=== PATIENT | female | born 1975 | race Caucasian/White ===

== ENCOUNTER 2023-12-16 09:02 | Inpatient (IN) | payer SELFPAY ==
[2023-12-16 09:03] VITALS: BP 136/88; PULSE 110; RESP 16; TEMP 37.1; O2SAT 97; BMI 25.9
--- NOTE | 2023-12-16 09:06 | W.ED.PSYCHS ---
HPI - Psych General: Chief Complaint: Psychiatric Symptoms Stated Complaint: BEHAVIOR Time Seen by Provider: 12/16/23 09:04 Source: patient Mode of arrival: EMS (Accompanied with law enforcement) History of Present Illness: 48-year-old female presents emergency room via EMS accompanied by law enforcement. EMS was called for behavioral issues on arrival deputies had encountered the patient first. She was oppositional and required soft restraints on arrival here she was in soft restraints she had been given 5 mg of Haldol and 2.5 mg of Versed. She was able to be released from the soft restraints. She been somewhat aggressive in the field. Is difficult to get her to answer questions she does admit to having PTSD and being anxious. The most I can get out her is that she thinks everyone is listening to her particularly her telegraph. She will not really directly answer questions about homicidal or suicidal intent. She states she removed here from [facility] about 4 years ago she denies previous mental health admissions she is not seen by psychiatry or counselor. Onset (ago): unknown Relieving factors: none Exacerbating factors: none Associated psychiatric symptoms: none Associated symptoms: Deny auditory hallucinations, visual hallucinations, delusions, depression, homicidal ideation, suicidal ideation or racing thoughts Review of Systems Const: Denies: fever(s) or chills Card: Denies: chest pain Resp: Denies: dyspnea GI: Denies: abdominal pain : Denies: dysuria, urinary frequency or urinary urgency Musc: Denies: neck pain or back pain Skin/Breast: Denies: rash Psych: Reports: anxiety; Denies: depression, visual hallucinations, auditory hallucinations, suicidal ideation or homicidal ideation Physical Exam Const: COMMON NORMALS: no acute distress GENERAL APPEARANCE: cooperative and comfortable ORIENTATION/CONSCIOUSNESS: Yes awake, Yes oriented to person, Yes oriented to place and Yes oriented to time HENMT: COMMON NORMALS: normocephalic, atraumatic and hearing grossly normal bilaterally HEAD & SCALP: normocephalic and atraumatic Resp: COMMON NORMALS: normal respiratory effort, No retractions, No use of accessory muscles and clear to auscultation bilaterally AUSCULTATION: clear to auscultation bilaterally Cardio: COMMON NORMALS: regular rate, regular rhythm and No murmurs present (Cardio) RATE: regular rate RHYTHM: regular rhythm GI: COMMON NORMALS: Soft to palpation and No hepatosplenomegaly present AUSCULTATION: Yes normoactive bowel sounds PALPATION: Yes Soft to palpation, No Tenderness to palpation present (GI), No Guarding due to palpation present (GI) and Yes No hepatosplenomegaly present Extremity: COMMON NORMALS: normal to inspection, capillary refill normal, no clubbing, cyanosis or edema, no calf tenderness and no pedal edema Neuro: SENSORIUM/ORIENTATION: Yes oriented to person, Yes oriented to place and Yes oriented to time Psych: THOUGHT CONTENT: No delusions Skin: COMMON NORMALS: no rashes or lesions noted GENERAL SKIN EXAM: no rashes or lesions noted Course Vital Signs: Vital signs: Vital Signs Temperature 97.9 F 12/16/23 20:57 Pulse Rate 78 12/16/23 20:57 Respiratory Rate 18 12/16/23 20:57 Blood Pressure 120/83 12/16/23 20:57 Pulse Oximetry 98 12/16/23 20:57 Oxygen Delivery Me thod Room Air 12/16/23 20:57 MDM - Psych Medical Decision Making Patient sugar screen positive for methamphetamines. I did talk to the family she behaved normally yesterday they have not seen this behavior from her in the past they were aware that years ago she did use drugs to the best of their knowledge has not been using anything recent. Initially we were looking at transferring the patient 96-hour hold around with find any facilities or able to take her in the course of this and bed did become available at our facility so I discussed with Dr. Shea again and he is excepted the patient admission orders written Differential Diagnosis Likely acute psychosis and drug-induced psychotic disorder Medical Records I reviewed the patient's medical records. Lab Data I reviewed the patient's lab results. 12/16/23 09:47 12/16/23 09:47 Radiology Impressions Chest X-Ray 12/16/23 10:27 IMPRESSION: No acute findings. Laboratory Results WBC 13.67 10^3/uL (3.29-11.43) H 12/16/23 09:47 RBC 4.52 10^6/uL (3.85-5.65) 12/16/23 09:47 Hgb 13.60 g/dL (11.27-16.99) 12/16/23 09:47 Hct 40.4 % (36-47) 12/16/23 09:47 MCV 89.4 fl (85-98) 12/16/23 09:47 MCH 30.1 pg (27-33) 12/16/23 09:47 MCHC 33.7 g/dL (30-55) 12/16/23 09:47 RDW 12.5 % (12.1-15.1) 12/16/23 09:47 Plt Count 317 10^3/cmm (157-399) 12/16/23 09:47 MPV 9.8 fL (7.4-10.4) 12/16/23 09:47 Neut % (Auto) 87.5 % 12/16/23 09:47 Lymph % (Auto) 5.3 % 12/16/23 09:47 [place] % (Auto) 6.5 % 12/16/23 09:47 Eos % (Auto) 0.0 % 12/16/23 09:47 Baso % (Auto) 0.4 % 12/16/23 09:47 Neut # (Auto) 11.97 10^3/uL (1.8-7.7) H 12/16/23 09:47 Lymph # (Auto) 0.7 10^3/uL (0.8-4.8) L 12/16/23 09:47 [place] # (Auto) 0.9 10^3/uL (0.2-0.9) 12/16/23 09:47 Eos # (Auto) 0.0 10^3/uL (0.0-0.8) 12/16/23 09:47 Baso # (Auto) 0.1 10^3/uL (0.0-0.1) 12/16/23 09:47 Nucleated RBC % (auto) 0 % 12/16/23 09:47 Nucleated RBCs # 0.0 /100WBC 12/16/23 09:47 Sodium 144 mmol/L (136-145) 12/16/23 09:47 Potassium 3.5 mmol/L (3.5-5.1) 12/16/23 09:47 Chloride 107 mmol/L (98-107) 12/16/23 09:47 Carbon Dioxide 21 mmol/L (22-29) L 12/16/23 09:47 Anion Gap 19.5 (5-19) H 12/16/23 09:47 BUN 27 mg/dL (6-20) H 12/16/23 09:47 Creatinine 1.1 mg/dL (0.5-0.9) H 12/16/23 09:47 GFR Calculation 53.2 mL/min (90-130) L 12/16/23 09:47 Glucose 123 mg/dL (65-115) H 12/16/23 09:47 Calculated Osmolality 304 mOsm/kg (285-295) H 12/16/23 09:47 Calcium 9.5 mg/dL (8.5-10.5) 12/16/23 09:47 Total Bilirubin 1.0 mg/dL (0.15-1.2) 12/16/23 09:47 AST 27 U/L (0-32) 12/16/23 09:47 ALT 29 U/L (0-33) 12/16/23 09:47 Alkaline Phosphatase 87 U/L (35-105) 12/16/23 09:47 Total Protein 7.8 g/dL (6.6-8.7) 12/16/23 09:47 Albumin 4.3 g/dL (3.5-5.2) 12/16/23 09:47 Globulin 3.5 g/dL (1.3-4.6) 12/16/23 09:47 TSH 0.51 uIU/mL (0.27-4.20) 12/16/23 09:47 Salicylates < 0.3 mg/dL (3-10) L 12/16/23 09:47 Urine Opiates Screen Negative ng/mL (Negative) 12/16/23 11:00 Acetaminophen < 5.0 ug/mL (10-30) L 12/16/23 09:47 Ur Barbiturates Screen Negative ng/mL (Negative) 12/16/23 11:00 Ur Phencyclidine Scrn Negative ng/mL (Negative) 12/16/23 11:00 Ur Amphetamines Screen Positive ng/mL (Negative) H 12/16/23 11:00 U Benzodiazepines Scrn Negative ng/mL (Negative) 12/16/23 11:00 Urine Cocaine Screen Negative ng/mL (Negative) 12/16/23 11:00 U Marijuana (THC) Screen Positive ng/mL (Negative) H 12/16/23 11:00 Ethyl Alcohol < 10 mg/dL (0-10) 12/16/23 09:47 SARS-CoV-2 Ag (Rapid) negative (Negative) 12/16/23 10:48 All radiology interpretation(s) finalized by discharge Discharge Plan Discharge Patient Disposition: Admitted As Inpatient Admit Provider: Jd Shea Clinical Impression: Acute psychosis, Drug-induced psychotic disorder Condition: Stable Coding Level of Care Code ED Release Of Information Clerk for Tanner Saucedo
[2023-12-16 09:21] VITALS: BP 136/88; PULSE 110; RESP 16; TEMP 37.1; O2SAT 97
[2023-12-16 10:04] LABS: Basophils # 0.1 10^3/uL (0.0-0.1); Basophils % 0.4 %; Hematocrit 40.4 % (36-47); Lymphocytes # 0.7 10^3/uL (0.8-4.8); Lymphocytes % 5.3 %; Mean Corpuscular HGB Conc 33.7 g/dL (30-55); Mean Corpuscular Hemoglobin 30.1 pg (27-33); Mean Corpuscular Volume 89.4 fl (85-98); Mean Platelet Volume 9.8 fL (7.4-10.4); Monocytes # 0.9 10^3/uL (0.2-0.9); Monocytes % 6.5 %; Neutrophils # 11.97 10^3/uL (1.8-7.7); Neutrophils % 87.5 %; Nucleated Red Blood Cells % 0 %; Platelet Count 317 10^3/cmm (157-399); Red Blood Count 4.52 10^6/uL (3.85-5.65); Red Cell Distribution Width 12.5 % (12.1-15.1); White Blood Count 13.67 10^3/uL (3.29-11.43)
--- NOTE | 2023-12-16 10:27 | XRR_ITS ---
PROCEDURE INFORMATION: Exam: XR Chest Exam date and time: 12/16/2023 10:31 AM Age: 48 years old Clinical indication: Cough and dyspnea; Additional info: Dyspnea/cough TECHNIQUE: Imaging protocol: Radiologic exam of the chest. Views: 1 view. COMPARISON: No relevant prior studies available. FINDINGS: Lungs: Unremarkable. No consolidation. Pulmonary vascularity is within normal limits. Pleural spaces: Unremarkable. No pleural effusion. No pneumothorax. Heart/Mediastinum: Unremarkable. No cardiomegaly. Bones/joints: No acute abnormality. There is dextroscoliosis. Linear density projected over the inferior left glenohumeral joint and axilla may be a foreign body, atypical osteochondral body or relate to old injury. XR/XR chest 1V portable [id number] IMPRESSION: No acute findings.
[2023-12-16 10:32] LABS: Alanine Aminotransferase 29 U/L (0-33); Albumin Level 4.3 g/dL (3.5-5.2); Alkaline Phosphatase 87 U/L (35-105); Anion Gap 19.5 (5-19); Aspartate Amino Transferase 27 U/L (0-32); Blood Urea Nitrogen 27 mg/dL (6-20); Calcium 9.5 mg/dL (8.5-10.5); Carbon Dioxide 21 mmol/L (22-29); Chloride 107 mmol/L (98-107); Globulin 3.5 g/dL (1.3-4.6); Glomerular Filtration Rate 53.2 mL/min (90-130); Glucose 123 mg/dL (65-115); Osmolality Calculated 304 mOsm/kg (285-295); Potassium 3.5 mmol/L (3.5-5.1); Sodium 144 mmol/L (136-145); Thyroid Stimulating Hormone 0.51 uIU/mL (0.27-4.20); Total Protein 7.8 g/dL (6.6-8.7)
[2023-12-16 10:34] LABS: Acetaminophen < 5.0 ug/mL (10-30); Alcohol Level < 10 mg/dL (0-10); Creatinine Clr Calc Pharmacy 71.5171; Salicylate < 0.3 mg/dL (3-10)
[2023-12-16 11:08] LABS: SARS Covid-2 Antigen negative (Negative)
[2023-12-16 11:21] LABS: Amphetamines Screen Urine Positive (Negative); Barbiturates Screen Urine Negative (Negative); Benzodiazepines Screen Urine Negative (Negative); Cocaine Screen Urine Negative (Negative); Opiate Screen Urine Negative (Negative); PCP Screen Urine Negative (Negative); THC Screen Urine Positive (Negative)
--- NOTE | 2023-12-16 11:41 | ECG_ITS ---
[facility] Test Date: 2023-12-16 Pat Name: Jodie Haque Department: Room: Gender: Female Assistant To The Director: : 1975 Requested By: Marc Nicolas Order Number: [id number] Breanne MD: Robert Mcdaniel M.D. Measurements Intervals [place] Rate: 66 P: 64 OR: 110 QRS: 70 QRSD: 68 T: 42 QT: 411 QTc: 433 Interpretive Statements SINUS RHYTHM WITH SHORT OR INTERVAL POSSIBLE LEFT ATRIAL ENLARGEMENT [-0.1mV P-WAVE IN V1/V2] No previous ECG available for comparison Electronically Signed On 12-16-2023 19:20:26 CDT by Robert Mcdaniel M.D. [id number]
[2023-12-16 12:00] VITALS: BP 143/85; PULSE 88; RESP 14; O2SAT 98
[2023-12-16] MEDS: sodium chloride 0.9% 1,000 ML 999 ML IV (14:17)
[2023-12-16 16:00] VITALS: PULSE 85; RESP 17; O2SAT 98
[2023-12-16 17:51] VITALS: BP 116/82; PULSE 80; RESP 16; O2SAT 98
[2023-12-16 20:57] VITALS: BP 120/83; PULSE 78; RESP 18; TEMP 36.6; O2SAT 98
[2023-12-16] MEDS: nicotine 4 mg lozenge MUCOUS MEM (21:38)
[2023-12-16] MEDS: trazodone 50 mg Tablet PO (21:38)
[2023-12-17 06:00] VITALS: BP 114/77; PULSE 86; RESP 16; TEMP 36.8; O2SAT 97; BMI 25.9
[2023-12-17] MEDS: ibuprofen 600 mg Tablet PO ×2 (08:48→21:51)
[2023-12-17] MEDS: blistex lip oint 7 gm Tube 1 APPLIC TOPICAL (08:49)
[2023-12-17] MEDS: nicotine 21 mg Patch 1 PATCH TRANSDERMA (09:20)
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
[2023-12-17 14:00] VITALS: BP 115/64; PULSE 95; RESP 20; TEMP 36.1; O2SAT 97
[2023-12-17 19:32] VITALS: BP 135/90; PULSE 89; RESP 17; TEMP 36.8; O2SAT 98
[2023-12-17] MEDS: nicotine 4 mg lozenge MUCOUS MEM (21:51)
[2023-12-17] MEDS: trazodone 50 mg Tablet PO (21:51)
[2023-12-18 06:00] VITALS: BP 114/75; PULSE 85; RESP 16; TEMP 36.6; O2SAT 98
--- NOTE | 2023-12-18 08:41 | PC.NURSE ---
IN BED RESTING, AROUSES TO VOICE. STATES SHE SLEPT GOOD. DENIES SI/HI AND AVH AT THIS TIME. PT REPORTS PAIN 6/10 EVERYWHERE, I HAVE ARTHRITIS. NEW ORDERS RECEIVED TO GIVE NAPROXEN 500 MG PO BID PAIN PRN, MED NURSE NOTIFIED TO GIVE ALONG WITH STOOL SOFTNER PT REQUESTED. RATES ANXIETY AND DEPRESSION 0/10. STATES GOAL FOR THE DAY IS TO READ THE REST OF MY BOOKLET YOU ALL GAVE ME. ALL QUESTIONS ANSWERED AND SUPPORT WAS VOICED.
[2023-12-18] MEDS: acetaminophen 325 mg Tablet 650 MG PO (10:07)
[2023-12-18] MEDS: bisacodyl 5 mg Tablet 10 MG PO (10:07)
[2023-12-18] MEDS: nicotine 4 mg lozenge MUCOUS MEM (10:08)
[2023-12-18] MEDS: nicotine 21 mg Patch 1 PATCH TRANSDERMA (13:11)
[2023-12-18 13:52] VITALS: BP 114/75; PULSE 85; RESP 16; TEMP 36.6; O2SAT 98
[2023-12-18 13:59] VITALS: BP 126/84; PULSE 103; RESP 20; TEMP 37; O2SAT 94
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
[2023-12-18] MEDS: buPROPion XL (24 HR) 150 mg Tablet PO (14:30)
== END 2023-12-18 15:35 | disposition home or self-care (01) | DRG 897 ==
LOC: ER 09:37 → NP 16:58
PROVIDERS: Admitting Provider Psychiatry & Neurology Psychiatry; Emergency Provider Family Medicine; Family Provider Family Medicine; Visit Provider Psychiatry & Neurology Psychiatry
DX: F15.159 Other stimulant abuse with stimulant-induced psychotic disorder, unspecified (principal); F12.10 Cannabis abuse, uncomplicated; M19.90 Unspecified osteoarthritis, unspecified site; F81.9 Developmental disorder of scholastic skills, unspecified
CPT/HCPCS: 36415; 71045; 80053; 80306; 80307; 84443; 85025; 87426; 93005; 97150; 97165; 99285; J7030